=== PATIENT | female | born 1945 | race Caucasian/White ===

== ENCOUNTER 2018-03-03 10:36 | Day surgery (SDC) | payer OTHER ==
[~2018-03-03] VITALS: Ht 160 cm; Wt 86.5 kg
[~2018-03-03 10:36] MED LIST: ACETAMINOPHEN 500 MG TABLET PO ONE; BACITRACIN 50,000 UNIT ONE; BUPIVACAINE 0.25% ONE; CBD/THC PO; EPINEPHRINE 1 MG/ML, 1ML ONE; FAMOTIDINE 20 MG TABLET PO ONE; FENTANYL PF 100 MCG/2ML ONE; GABAPENTIN 300 MG CAPSULE PO ONE; LACTATED RINGERS 1,000 ML IV SCH; LIDOCAINE GEL 2%, 5ML ONE; LIDOCAINE-MPF 1%, 2ML INFIL ONE; MIDAZOLAM 1 MG/ML, 2ML ONE; ONDANSETRON ODT 8 MG PO ONE; OXYcodone IR 5MG TABLET PO ONE
[2018-03-03] MEDS ORDERED: MIDAZOLAM 1 MG/ML, 2ML ONE (11:10)
[2018-03-03] MEDS ORDERED: FENTANYL PF 250 MCG/5ML ONE (11:10)
[2018-03-03] MEDS ORDERED: LACTATED RINGERS 1,000 ML IV SCH (11:26)
[2018-03-03] MEDS ORDERED: LIDOCAINE/PF 1%, 30ML ONE (11:29)
[2018-03-03] MEDS ORDERED: BACITRACIN 50,000 UNIT ONE (11:29)
[2018-03-03] MEDS ORDERED: SCOPOLAMINE PATCH, 1.5MG PATCH.TD72 TD ONE (11:30)
[2018-03-03] MEDS ORDERED: OxyconTIN ER 10 MG TAB.ER PO ONE (11:30)
[2018-03-03] MEDS ORDERED: LIDOCAINE-MPF 1%, 2ML INFIL ONE (11:30)
[2018-03-03] MEDS ORDERED: ACETAMINOPHEN 500 MG TABLET PO ONE (11:30)
[2018-03-03] MEDS ORDERED: GABAPENTIN 300 MG CAPSULE PO ONE (11:30)
[2018-03-03 11:32] VITALS: BP 140/81
[2018-03-03] MEDS ORDERED: CEFAZOLIN 1,000 MG ONE (12:02)
[2018-03-03] MEDS ORDERED: PROPOFOL 10 MG/ML, 20ML ONE (12:02)
[2018-03-03] MEDS ORDERED: ROCURONIUM 10 MG/ML,10ML ONE (12:02)
[2018-03-03] MEDS ORDERED: EPHEDRINE 50 MG/ML, 1ML ONE (12:02)
[2018-03-03] MEDS ORDERED: SUCCINYLCHOLINE 20 MG/ML, 10ML ONE (12:02)
[2018-03-03] MEDS ORDERED: FENTANYL PF 100 MCG/2ML IV PRN (13:00)
[2018-03-03] MEDS ORDERED: PROMETHAZINE 25 MG/ML, 1ML IV PRN (13:00)
[2018-03-03] MEDS ORDERED: LABETALOL 5MG/ML, 20ML IV PRN (13:00)
[2018-03-03] MEDS ORDERED: HYDROmorphone 1 MG/ML, 1ML IV PRN (13:00)
[2018-03-03] MEDS ORDERED: KETOROLAC 30 MG/1 ML IV PRN (13:00)
[2018-03-03] MEDS ORDERED: MEPERIDINE/PF 25MG/0.5ML IVPush PRN (13:00)
[2018-03-03] MEDS ORDERED: OXYcodone 5 MG/5 ML ORAL.SOL UDC PO PRN (13:00)
[2018-03-03] MEDS ORDERED: METOCLOPRAMIDE 5 MG/ML, 2ML IV PRN (13:00)
[2018-03-03] MEDS ORDERED: hydrALAzine 20 MG/ML, 1ML IV PRN (13:00)
[2018-03-03] MEDS ORDERED: ALBUTEROL SULFATE 2.5 MG/3 ML NPPB PRN (13:00)
[2018-03-03] MEDS ORDERED: ONDANSETRON 2MG/ML, 2ML IVPush PRN (13:00)
[2018-03-03] MEDS ORDERED: FENTANYL PF 100 MCG/2ML ONE (13:46)
== END 2018-03-03 16:32 | disposition home or self-care (01) ==
LOC: OUT 10:36
PROVIDERS: ATTEND Specialist
DX: T85.43XA Leakage of breast prosthesis and implant, initial encounter (principal); Y83.8 Other surgical procedures as the cause of abnormal reaction of the patient, or of later complication, without mention of misadventure at the time of the procedure; Y92.89 Other specified places as the place of occurrence of the external cause; Z85.3 Personal history of malignant neoplasm of breast
CPT/HCPCS: 19340; 19371; 87070; 87075; 87205; 88305; 88331; C1729; C1762; C1789; J0330; J0690; J2250; J2704; J3010; J7120; Q0162; J0171; J3490